=== PATIENT | male | born 1995 | race Caucasian/White ===

== ENCOUNTER → 2017-02-26 | Outpatient (CLI) | payer SELFPAY ==
--- NOTE | 2017-02-26 13:27 | EKG ---
[address] [address] Measurements Intervals [place] Rate: 59 P: 31 MT: 128 QRS: 61 QRSD: 100 T: 72 QT: 388 QTc: 388 Interpretive Statements SINUS RHYTHM WITH SINUS ARRHYTHMIA ST ELEVATION, PROBABLY EARLY REPOLARIZATION [ST ELEVATION WITH NORMALLY INFLECTED T WAVE] No previous ECG available for comparison Electronically Signed On 02-27-17 08:09:27 MDT by Carlos Barbour MD [email or web address]
== END ==
LOC: EKG 09:00
PROVIDERS: ATTEND Physician Assistant Medical
DX: R07.2 Precordial pain (principal)
CPT/HCPCS: 93005; 93010